=== PATIENT | male | born 1950 | race Caucasian/White ===

== ENCOUNTER 2020-03-19 21:20 | Emergency (ER) | payer MEDICARE, MEDICAID, SELFPAY ==
[2020-03-19] VITALS (8 sets, daily range): BP systolic 170–184; BP diastolic 73–137; PULSE 71–80; RESP 17–21; TEMP 36.3–37.3; O2SAT 96–99; BMI 37.3; BMI 33.9
--- NOTE | 2020-03-19 21:21 | EKG12_ITS ---
Test Reason : STROKE Blood Pressure : / mmHG Vent. Rate : 081 BPM Atrial Rate : 081 BPM P-R Int : 182 ms QRS Dur : 090 ms QT Int : 366 ms P-R-T Axes : 067 049 018 degrees QTc Int : 425 ms Somatic/ Motion Artifact Normal sinus rhythm Nonspecific ST& T wave abnormality Abnormal ECG Confirmed by SOFIE OCONNOR, BRITTANY ([id number]), writer editor LENCHO MISTRY ([id number]) on 03/24/2020 10:07:30 AM Referred By: MATTHEW Confirmed By:BRITTANY CARRIZALES MD
--- NOTE | 2020-03-19 21:21 | CT_ITS ---
STUDY: CT BRAIN WITHOUT CONTRAST REASON FOR EXAM: Male, 69 years old. Last known well noon today. Rt side weakness RADIATION DOSAGE (If Supplied By Facility): CTDIvol = ( 44.99 ) mGy, DLP = ( 846.73 ) mGycm TECHNIQUE: Transaxial CT imaging of the brain was performed without administration of intravenous contrast material. Individualized dose optimization techniques were used for this CT. COMPARISON: No relevant priors. FINDINGS: Normal soft tissue structures. Normal calvarium. There is mild cerebral atrophy with widening of the extra-axial spaces and ventricular dilatation. Demarcation of a recent infarct in the anterior limb of the left internal capsule putamen and lateral basal ganglia of the left hemisphere with mild effacement of the left lateral ventricle. He potentially has a dense left MCA. Normal right basal ganglia. Normal brainstem. Normal cerebellum. There is no intracranial hemorrhage. There are no findings of an acute ischemic infarction. Normal visualized paranasal sinuses. CT/Brain/Head without Contrast IMPRESSION: Demarcation of a recent nonhemorrhagic infarct in the left hemisphere involving the anterior limb of the left internal capsule bordering the caudate, putamen and lateral basal ganglia with mild effacement of the left lateral ventricle. Potential dense left MCA. N.B. : The above information has been verbally conveyed by Liane Loving MD to Daniel Fabian on 03/19/2020 21:36:09 (ET). Electronically Signed: Liane Loving MD at 21:40 EDT , Service support ,
--- NOTE | 2020-03-19 21:22 | CT_ITS ---
STUDY: CTA HEAD AND NECK WITH CONTRAST REASON FOR EXAM: Male, 69 years old. RIGHT SIDED WEAKNESS. DOWN SINCE 12PM RADIATION DOSAGE (If Supplied By Facility): CTDIvol = ( 16.95 ) mGy, DLP = ( 788.24 ) mGycm TECHNIQUE: CT angiography was performed with a multi-detector CT scanner. Data acquisition was obtained from the skull base through the vertex following intravenous administration of . MIP images were reconstructed from the axial data set. Post-processing of the angiographic images was performed, with multiplanar reformation and 3D reconstruction. Individualized dose optimization techniques were used for this CT. COMPARISON: No relevant priors. FINDINGS: The aorta has a normal branching pattern. Left common carotid is patent. Left internal carotid is not perfused with minimal heterogeneous opacification, possibly acute thrombosis. Left external is patent. Right common carotid and right internal carotid artery are patent. Bilateral vertebral arteries arise from the subclavian arteries and a patent in the cervical intraosseous segments. Base of skull left carotid is occluded with carotid terminus bifurcation. Right basal skull carotid is patent. Right MCA and NEW are patent. Left A1 is hypoplastic. Left M1 is perfused with an abrupt cut off of a major branch with nonperfusion of proximal M2 and M3 branches. There is a single anterior temporal M2 level small branch. Posterior communicating arteries are not seen. Posterior cerebral, superior cerebellar, basilar and bilateral codominant vertebral arteries are patent. There is an acute or late acute infarct in the left basal ganglia and adjacent white matter. CT/CTA Head AND Neck W/ Contrast IMPRESSION: 1. Occlusion of left cervical and basal skull carotid, possibly acute thrombosis. 2. Occlusion of left M2 branches, possibly acute left MCA territory infarct. 3. 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 N.B. : The above information has been verbally conveyed by Jenny Bentley to Daniel Fabian MD, on 03/19/2020 21:42:23 (ET). Electronically Signed: Jenny Bentley, at 21:47 EDT Tel , Service support ,
--- NOTE | 2020-03-19 21:23 | ED.DCSUM_ITS ---
History of Present Illness Chief Complaint: Neuro S/Sx Informant: Patient, Surveillance Investigator Onset: Today Current Severity: Severe Maximum Severity: Severe Narrative: The patient is a 69-year-old male with reported history of hypertension who presents to the emergency department right-sided weakness. The patient lives with his daughter, but is otherwise independent per squad report. She left at noon today to go to work. When she returned at about 9 PM, she noticed that he had slurred speech, right facial droop, and right arm weakness. It was unsure of the exact time of onset of symptoms. On squad arrival, they did note positive [place] stroke scale. Stroke team was activated prehospital he. History is hard to gather from the patient given his dysarthria. Prior similar symptoms: No Recent Illness/Hospitalization: No Past Medical History - Allergies and Home Meds Allergies/Adverse Reactions: Allergies No Known Allergies Allergy (Verified 03/19/20 21:39) Primary Care Physician: Wero Kennedy III, MD [Primary Care Provider] - Prior records reviewed: Yes Past Medical History: - - Hypertension, dystonia Surgical History: noncontributory Smoking Status: Unknown if ever smoked Review of Systems ROS: Unable to Obtain Physical Exam Inital Vital Signs reviewed: Yes General: Well nourished, Well developed, No Acute Distress Head: Normocephalic, Atraumatic Eyes: Perrl, EOMI ENT: Moist mucous membranes, No rhinorrhea Neck: Supple, Nontender Cardiovascular: Regular rate, Regular rhythm, No murmurs Respiratory: No distress, CTA bilaterally, Chest nontender Abdomen: Soft, Nontender, Nondistended, Normal bowel sounds Back: Nontender, Normal Inspection Extremities: Nontender, No edema Skin: Normal color, No rash Neurological: Alert, Oriented x3, Normal Sensation, Weakness, Right side facial droop Psychological: Normal affect, Normal Mood Diagnostic/Tx/Re-eval Clinical Impression(s) from Imaging Studies Brain CT 03/19/20 21:21 IMPRESSION: Demarcation of a recent nonhemorrhagic infarct in the left hemisphere involving the anterior limb of the left internal capsule bordering the caudate, putamen and lateral basal ganglia with mild effacement of the left lateral ventricle. Potential dense left MCA. N.B. : The above information has been verbally conveyed by Liane Loving MD to Daniel Fabian on 03/19/2020 21:36:09 (ET). Electronically Signed: Liane Loving MD at 21:40 EDT , Service support , ADDENDUM: 03/19/20 2147 IMPRESSION: Demarcation of a recent nonhemorrhagic infarct in the left hemisphere involving the anterior limb of the left internal capsule bordering the caudate, putamen and lateral basal ganglia with mild effacement of the left lateral ventricle. Potential dense left MCA. N.B. : The above information has been verbally conveyed by Liane Loving MD to Daniel Fabian on 03/19/2020 21:36:09 (ET). Electronically Signed: Liane Loving MD at 21:40 EDT , Service support , Head/Neck CTA 03/19/20 21:22 IMPRESSION: 1. Occlusion of left cervical and basal skull carotid, possibly acute thrombosis. 2. Occlusion of left M2 branches, possibly acute left MCA territory infarct. 3. Incomplete [place] of Ang, hypoplastic left A1 collateralization of the left MCA. N.B. : The above information has been verbally conveyed by Jenny Bentley to Daniel Fabian MD, on 03/19/2020 21:42:23 (ET). Electronically Signed: Jenny Bentley at 21:47 EDT Tel , Service support , - Rhythm Strip Rhythm Strip: Sinus Rhythm Rate: 80 Ectopy: None - EKG Initial EKG Interpretation: Sinus Rhythm, No Acute Injury Pattern Prior: No Prior - Medical Decision Making Stroke team was activated and patient arrival. He does have right-sided weakness, right facial droop, and significant dysarthria. NIH is 12. Patient underwent CT which already shows cortical changes secondary to stroke. CTA demonstrates acute left internal carotid and left M2 branch occlusion. Last known well was 9 to 10 hours ago, so the patient is not a TPA candidate. He was evaluated emergently by [facility] neurology. Given the acute occlusion, at this point, he will be transported immediately to [facility] for determination of whether he is a candidate for thrombectomy. Daughter at bedside was present during this discussion with [facility] and is agreeable. The patient will be transferred immediately. Impression 1. Acute ischemic stroke secondary to internal carotid and M2 branch occlusion - Critical Care Time Critical care time (excluding procedures): 30-74 minutes ED Disposition - Plan for ED Patient: Referrals: Wero Kennedy III, MD [Primary Care Provider] -
--- NOTE | 2020-03-19 21:25 | CM.ED ---
SOCIAL WORK Responded to Stroke Alert. Patient out of room for CT. No family present at this time. SW to remain available for needs. Kady Xiao, PLUMBER GASFITTER, POLISHER HAND
--- NOTE | 2020-03-19 21:39 | ED.RN ---
NO TRANDATE PER DR. PAIGE.
[2020-03-19 21:48] LABS: Absolute Lymphocyte Count 1.29 X10^3/uL (0.83-4.51); Absolute Neutrophil Count 10.3 X10^3/uL (2.0-7.7); Basophil# 0.03 X10^3/uL; Basophil% 0.2 % (0-1); Eosinophil# 0.02 X10^3/uL; Eosinophils% 0.2 % (0-5); Hemoglobin 13.9 g/dL (13.0-16.5); Lymphocyte # 1.29 X10^3/ul (4.0); Lymphocyte % 10.3 % (19-41); Mean Corp Hgb Conc 33.1 g/dL (32-36); Mean Corpuscular Hgb 29.6 pg (27.0-32.0); Mean Corpuscular Volume 89.4 fL (80-94); Mean Platelet Vol. 9.8 fl (6.2-12.0); Monocyte# 0.87 X10^3/uL; Monocyte% 6.9 % (0-10); NRBC Flagged by Analyzer 0 % (0-5); Neutrophil # 10.32 X10^3/uL (2.7-7.7); Platelet Count 187 K/mm3 (150-450); RBC Distribution Width CV 13.5 % (11.6-14.6); White Blood Count 12.6 K/mm3 (4.4-11.0)
[2020-03-19 21:56] LABS: International Normalized Ratio 1.2; Prothrombin Time (Protime)PT. 14.4 SECONDS (11.7-14.9)
[2020-03-19 21:57] LABS: Partial Thromboplast Time 24.2 Seconds (24.1-36.2)
[2020-03-19 22:06] LABS: Anion Gap 8 (5-15); BUN 33 mg/dL (7-18); Calcium,Total 8.5 mg/dL (8.5-10.1); Chloride 106 mmol/L (98-107); Creatinine, Serum 1.32 mg/dL (0.70-1.30); EST Glomerular Filtration Rate 57 mL/min (>60); Est Glom Filt Rate - Afr Amer 69 mL/min (>60); Estimated Creatinine Clearance 50.08 ml/min; Glucose 99 mg/dL (74-106); Potassium 3.7 mmol/L (3.5-5.1); Sodium Level 139 mmol/L (136-145)
--- NOTE | 2020-03-19 22:10 | RAD_ITS ---
STUDY: X-RAY CHEST REASON FOR EXAM: Male, 69 years old. Stroke, cough. TECHNIQUE: Frontal view of the chest COMPARISON: January 18 2013 FINDINGS: The lungs are clear and expanded. There is no demonstrated pleural abnormality. Normal size heart. Normal mediastinum and dada. Normal visualized pulmonary arteries. Normal visualized aortic arch and descending thoracic aorta. Normal visualized thoracic spine. Normal visualized ribs, clavicles, and shoulders. There is no demonstrated abnormality of the visualized soft tissue structures of the upper abdomen. RAD/Chest 1 View IMPRESSION: Normal x-ray examination of the chest. Electronically Signed: Jenny Bentley, at 22:49 EDT Tel , Service support ,
--- NOTE | 2020-03-19 22:18 | NURSING ---
[facility] CALLED [facility] AND WE WERE INFORMED FLIGHT TIME WOULD BE AN HOUR BEFORE ARRIVAL. CALLED [employer] AND WAS TOLD THEY NEEDED TO GET GAS BEFORE FLIGHT RESULTING IN AN HOUR WAIT TIME WELL. CALLED PHYSICIANS AND WAS TOLD ALSO AN HOUR SO HAVING THEM CALL OTHER [employer].
== END 2020-03-19 23:26 | disposition short-term general hospital (02) ==
PROVIDERS: Emergency Provider Emergency Medicine; PCP Family Medicine
DX: I63.89 Other cerebral infarction (principal); I65.22 Occlusion and stenosis of left carotid artery; I10 Essential (primary) hypertension
CPT/HCPCS: 70450; 70496; 70498; 71045; 80048; 84484; 85025; 85610; 85730; 93005; 99285; Q9967; A4216

== ENCOUNTER 2020-04-09 11:30 | Emergency (ER) | payer MEDICARE, MEDICAID, SELFPAY ==
[2020-03-19 21:32] VITALS: BMI 33.9
[2020-04-09 11:32] VITALS: BP 136/65; PULSE 85; RESP 19; TEMP 37.1; O2SAT 97; BMI 30.3
--- NOTE | 2020-04-09 12:08 | EKG12_ITS ---
Test Reason : Blood Pressure : / mmHG Vent. Rate : 077 BPM Atrial Rate : 077 BPM P-R Int : 190 ms QRS Dur : 094 ms QT Int : 366 ms P-R-T Axes : 053 008 007 degrees QTc Int : 414 ms Normal sinus rhythm Normal ECG Confirmed by JOHNATHON OCONNOR, JANETTE ([id number]), metropolitan editor KEN DENT ([id number]) on 04/14/2020 8:43:17 AM Referred By: ANDREZ Confirmed By:JANETTE DIEGO MD
--- NOTE | 2020-04-09 12:08 | RAD_ITS ---
STUDY: X-RAY CHEST REASON FOR EXAM: Male, 69 years old. PT WAS IN THERAPY AT [facility] AND BECAME SHORT OF BREATH, HX STROKE TECHNIQUE: Single AP portable view of the chest. COMPARISON: Comparison is made with prior study dated 03/19/2020. FINDINGS: EKG electrodes are seen. The lungs are clear and expanded. There is no demonstrated pleural abnormality. Normal size heart. Normal mediastinum and dada. Normal visualized pulmonary arteries. Normal visualized aortic arch and descending thoracic aorta. Normal visualized thoracic spine. Normal visualized ribs, clavicles, and shoulders. There is no demonstrated abnormality of the visualized soft tissue structures of the upper abdomen. RAD/Chest 1 View (Portable) IMPRESSION: Normal x-ray examination of the chest. Electronically Signed: Hank Lopez, at 12:58 EDT , Service support ,
[2020-04-09 12:35] VITALS: O2SAT 96
[2020-04-09 12:46] LABS: Absolute Lymphocyte Count 0.54 X10^3/uL (0.83-4.51); Absolute Neutrophil Count 12.5 X10^3/uL (2.0-7.7); Basophil# 0.02 X10^3/uL; Basophil% 0.1 % (0-1); Eosinophil# 0.01 X10^3/uL; Eosinophils% 0.1 % (0-5); Hematocrit 39.5 % (40-54); Hemoglobin 12.7 g/dL (13.0-16.5); Lymphocyte # 0.54 X10^3/ul (4.0); Mean Corp Hgb Conc 32.2 g/dL (32-36); Mean Corpuscular Hgb 28.7 pg (27.0-32.0); Mean Corpuscular Volume 89.4 fL (80-94); Mean Platelet Vol. 8.9 fl (6.2-12.0); Monocyte# 0.58 X10^3/uL; Monocyte% 4.2 % (0-10); NRBC Flagged by Analyzer 0 % (0-5); Neutrophil # 12.45 X10^3/uL (2.7-7.7); Neutrophil % 91.1 % (47-70); POSITIVE DIFFERENTIAL YES; Platelet Count 270 K/mm3 (150-450); RBC Distribution Width CV 13.2 % (11.6-14.6); RBC Distribution Width SD 43.5 fl (35.1-43.9); Red Blood Count 4.42 M/mm3 (4.6-6.2); White Blood Count 13.7 K/mm3 (4.4-11.0)
[2020-04-09 12:47] LABS: Differential Indicated SCAN CRITERIA MET
[2020-04-09 12:57] LABS: Anion Gap 6 (5-15); BUN 31 mg/dL (7-18); BUN/Creat Ratio 26.3 RATIO (10-20); Chloride 105 mmol/L (98-107); Creatinine, Serum 1.18 mg/dL (0.70-1.30); EST Glomerular Filtration Rate 65 mL/min (>60); Est Glom Filt Rate - Afr Amer 79 mL/min (>60); Estimated Creatinine Clearance 57.97 ml/min; Glucose 145 mg/dL (74-106); Potassium 4.2 mmol/L (3.5-5.1); Sodium Level 138 mmol/L (136-145)
[2020-04-09 13:19] LABS: Platelet Estimate ADEQUATE (ADEQ); Red Cell Morphology NORM C+C NORMAL (NORM C&C)
--- NOTE | 2020-04-09 13:40 | ED.DCSUM_ITS ---
- ER Visit Summary Date of Service: 04/09/20 Chief Complaint: Shortness of breath History of Present Illness: The patient is a [address] who typically sees Dr[address] Wero Kennedy. [facility] The nurse there reports that when he was getting physical therapy today he appeared to be short of breath. Patient tells me that was mild and he denies any shortness of breath now. He does have a history of prior stroke which makes communication difficult however. On review of systems patient does admit that he has a cough. He denies any fever or chills. No chest pain. He reports that he has a little bit of headache. Patient's daughter presented to the emergency department she reports that she has cared for him for a long time prior to [facility] and that he is not very active. She states that he is short of breath with any ambulation and this is chronic for him. She is not surprised that he was short of breath during physical therapy today. Physical Examination: Vitals: Stable. Afebrile. General: Well-nourished and well-developed. Head: Normocephalic atraumatic. Neck: Supple, no lymphadenopathy. No JVD. Nontender. Cardiovascular: Regular rate and rhythm. No murmurs. Respiratory: No respiratory distress. Clear to auscultation bilaterally. Abdominal: Soft, nontender, nondistended, normal bowel sounds. No guarding, rebound, or peritoneal signs. Back: Nontender. Extremities: Nontender, no edema. Skin: Normal color, no rash. Neurologic: Alert and oriented ?3. Cranial nerves II through XII are intact. Normal strength and sensation. Psych: Normal affect. Test Results: EKG is sinus at [address] changes. Troponin is negative. Chem-7 shows a BUN of 31. CBC shows a white count of 13.7 with an H&H 12.7 39.5, stable neutrophils 91, lymphocytes are 4.. Clinical Impression(s) from Imaging Studies Chest X-Ray 04/09/20 12:08 IMPRESSION: Normal x-ray examination of the chest. Electronically Signed: Hank Lopez, at 12:58 EDT , Service support , Emergency Department Course and Treatment: Patient is resting comfortably witho ut complaint. Treatment Plan: It sounds as though the symptoms are quite longstanding. Patient be discharged instructions follow-up his primary care physician 3 to 5 days not improving. Return to the emergency department for any worsening symptoms. Disposition: To home in improved and stable condition. Impression: 1. Dyspnea, resolved. 2. URI. This note was generated with [employer] dictation software. It may contain incorrect words, spelling, and punctuation that were not noted in review of the chart prior to signing ED Disposition - Plan for ED Patient: Disposition: Home or Assisted Living Instructions: ED Dyspnea Referrals: Doctor,Your [STAFF PHYSICIAN] - 1 Week if not improving
[2020-04-09 13:53] VITALS: PULSE 63; RESP 15; O2SAT 95
--- NOTE | 2020-04-09 15:43 | ED.RN ---
[facility]. AWARE PT WILL BE THERE SOON TRANSPORT ARRIVES.
== END 2020-04-09 16:37 | disposition home or self-care (01) ==
PROVIDERS: Emergency Provider Emergency Medicine; PCP Family Medicine
DX: R06.00 Dyspnea, unspecified (principal); J06.9 Acute upper respiratory infection, unspecified; Z86.73 Personal history of transient ischemic attack (TIA), and cerebral infarction without residual deficits
CPT/HCPCS: 71045; 80048; 84484; 85025; 93005; 99285; A4216

== ENCOUNTER → 2020-05-10 12:48 | Outpatient (CLI) | payer MEDICARE, MEDICAID, SELFPAY ==
--- NOTE | 2020-05-10 12:55 | SP.MBSS_ITS ---
Modified Barium Swallow - Patient Information Study Date: 05/10/20 Study Time: 13:00 Direct Billable Minutes: 135 Total Minutes procedure & reportin Diagnosis: dysphagia Referring Physician: Adriane Dawson NP Reason for Referral: Pt is an unreliable informant - denies being on a modified food texture/liquid consistency, nor to be working w/ AIRPORT BAGGAGE SCREENER at [facility], despite knowledge of patient being on a pureed texture/mildly thick (nectar) liquid diet w/ order for this MBS written by [facility] [employer]PORT [employer]. No accompanying documentation provided re: rationale for MBS referral. Medical History: CVA, aphasia, dysphagia, R hemiplegia, nmorbid obesity, hx aspiration PNA, mild cognitive impairment, acute respiratory failure, acute kidney failure, hypertensive crisis, HLD, hypertensive heart disease w/out heart failure, cardiomegaly, atrial flutter, tachycardia, hypolkalemia, chronic kidney disease Current Diet Ordered: Pureed Textures/Mildly Thick ([place]) Liquids Dentition: Edentulous - patient reports that he has dentures and would not typically eat solid textures w/out them, although unclear if this is accurate; dentures not available at time of MBS Mental Status: Impaired - s/p CVA, unable to answer questions re: diet, swallow function, therapy received Respiratory Status: Oxygenating on Room Air - Study Findings Consistencies: Thin Liquid, [place] Thick Liquid, Pudding - Penetration-Aspiration Scale Penetration-Aspiration Scale: OBJECTIVE ASSESSMENT OF SWALLOW FUNCTION (QUANTITATIVE ? PER TRIAL): PENETRATION / ASPIRATION SCALE (MARTÍNEZ): 1 = does not enter airway 2 = enters airway/above vocal folds/ejected 3 = enters airway/above vocal folds/not ejected 4 = enters airway/contacts vocal folds/ejected 5 = enters airway/contacts vocal folds/not ejected 6 = enters airway/below vocal folds/ejected 7 = enters airway/below vocal folds/not ejected despite effort 8 = enters airway/below vocal folds/no effort - Penetration-Aspiration Scale Score Thin Liquid via teaspoon Result: 1= does not enter airway Thin Liquid via teaspoon Trial 2 Result: 1= does not enter airway Thin Liquid via straw large sip Result: 5= enters airways/contacts vocal folds/not ejected Comment: contacted vocal folds during deglutition w/ partial ejection w/ swallow completion, trace contrast remained w/in the laryngeal vestibule but above the vocal folds Thin Liquid via single sip from straw Result: 1= does not enter airway Thin Liquid via single sip from straw Trial 2 Result: 1= does not enter airway Thin Liquid via single sip from straw Trial 3 Result: 1= does not enter airway Pudding Result: 1= does not enter airway Pudding Trial 2 Result: 1= does not enter airway Pudding Trial 3 Result: 1= does not enter airway [place] Thick Liquid via single sip from straw Result: 1= does not enter airway [place] Thick Liquid via single sip from straw Trial 2 Result: 1= does not enter airway Thin Liquid via single sip from straw Trial 4 Result: 1= does not enter airway Thin Liquid via single sip from straw Trial 5 Result: 1= does not enter airway Pudding Trial 4 Result: 1= does not enter airway - Oral Phase Labial Seal: Interlabial escape, no progression to anterior lip Tongue Control During Bolus Hold: Posterior escape of less than half of bolus Bolus Preparation/Mastication: Timely and efficient chewing and mashing - noted chewing of liquids and pudding, mastication appeared timely/coordinated Bolus Transport/Lingual Motion: Delayed initiation of tongue motion Oral Residue: Residue collection on oral structures - Pharyngeal Phase Initiation of Pharyngeal Swallow: Bolus head in pyriforms Soft Palate Elevation: No bolus between soft palate and pharyngeal wall Laryngeal Elevation: Partial superior movement thyroid cart/partial apprx aryt- epig petiole Anterior Hyoid Excursion: Partial anterior movement Epiglottic Movement: Complete inversion Laryngeal Vestibule Closure at Height of Swallow: Incomplete; narrow column of air/contrast in laryngeal vestibule Pharyngeal Stripping Wave: Present - diminished Pharyngoesophageal Segment Opening: Complete distension and complete duration; no obstruction of flow Tongue Base Retraction: Narrow column of contrast between tongue base & post. pharyngeal wall Pharyngeal Residue: Collection of residue within or on pharyngeal structures - Esophageal Phase Esophageal Clearance: Complete clearance - could not sufficiently view d/t body habitus/positioning - Treatment Strategies Effects of treatment strategies attemped:: * Reduction in bolus volume: effective * Volitional swallow to clear residue: somewhat effective although difficult for the patient to elicit swallow - Diagnosis/Impression Diagnosis: mild to moderate oropharyngeal dysphagia Impression: This patient presents w/ mild to moderate oropharyngeal dysphagia s/p CVA. The oral phase is marked by: * impaired lingual control w/ liquids pooling to the floor of the mouth/buccal cavity along w/ premature pharyngeal bolus entry os less than 1/2 of the bolus * impaired oral prep w/ the patient noted to chew all boluses, including liquids, prior to initiating oral to pharyngeal transfer * delayed lingual motion noted for A-P bolus transit * mastication w/ solids not trialed d/t patient's edentulous status w/ reporting that he does not eat any solids w.out dentures in place, although mastication appeared organized when chewing w/ pudding/liquid trials * a collection of residue remained w/in the oral cavity post deglutition, lining the lingual surface and minimally along the floor of mouth/buccal cavity The pharyngeal phase is marked by: * suboptimal timing of pharyngeal swallow onset w/ liquids reaching the pyriform sinuses (at worst) prior to swallow onset * laryngeal vestibule penetration occurred w/ large volume thin liquid bolus via straw during deglutition d/t suboptimal bolus location at time of swallow onset w/ incomplete arytenoid to epiglottic petiole contact resulting penetration which contacted the vocal folds and was not ejected from the laryngeal vestibule * dystussia noted w/ insufficient cough pressure achieved to expel penetrated contrast from the laryngeal vestibule * timing for swallow onset was improved when the patient was cued for and effectively reduced liquid bolus volume (small sips) * reduction in liquid bolus volume was effective to eliminate laryngeal vestibu le penetration * reduced hyolaryngeal excursion and pharyngeal contraction resulted in insufficient pharyngeal clearance w/ a collection of contrast lining the base of tongue, valleculae and aryepiglottic folds w/ extension to the pyriform sinuses post deglutition * able to clear a majority of the residue lining the oropharyngeal structures w/ a second swallow, although required extra time and effort to initiate a volitional swallow The esophageal phase was limited in view d/t the patient's body habitus and positioning. Given the limited view, esophageal phase was unremarkable. - Recommendations Diet: Puree Textures, Thin Liquids Compensatory Strategies: Small Bites, Small Sips, Sips by straw only, Remain sitting upright for 30 minutes after PO intake, Assist with verbal cues to use recommended strategies Supervision: Assist as needed - Pt was unable to hold cup/utensil for self feeding during MBS. Recommend Repeat Modified Barium Swallow: No Need for Skilled Speech Therapy Services: Yes - assess comp strat use/diet texture mgmt/swallow ex Education Completed: 1. Described result of evaluation., 2. Pt understands evaluation & agrees with goals and treatment plan., 7. Pt requires further education on strategies & risks. Comment: Results and recommendations were discussed with the patient immediately following MBS completion. Anticipate need for ongoing education to ensure comprehension recommendations and carryover use of compensatory strategies. - Image Count: 2,950 - Status Active ST Patient: Active - Contact Information [facility] Speech Therapy:: Mary Haider M.A., CCC-[employer] [facility] Speech-Language Pathologist [email or web address] [phone]
== END ==
PROVIDERS: PCP Family Medicine; Referring Provider Nurse Practitioner Family; Visit Provider Nurse Practitioner Family
DX: R13.12 Dysphagia, oropharyngeal phase (principal)
CPT/HCPCS: 74230; 92611